=== PATIENT | female | born 1960 | race Caucasian/White ===

== ENCOUNTER 2019-12-05 11:46 | Inpatient (IN) | payer OTHER ==
[~2019-12-05] VITALS: Ht 170.2 cm; Wt 86.4 kg
[2019-12-05 12:26] LABS: BASOPHIL % 0.1 % (0-2)
[2019-12-05 12:55] LABS: ALKALINE PHOSPHATASE 130 U/L (46-116); ALT/SGPT 29 U/L (14-59); AST/SGOT 53 U/L (15-37); CARBON DIOXIDE 18.9 mmol/L (21-32); CHLORIDE SERUM 110 mmol/L (98-107); CREATININE SERUM 2.2 mg/dL (0.6-1.0); GFR1 24 mL/min; GLUCOSE SERUM 163 mg/dL (74-106); LIPASE 429 IU/L (73-393); POTASSIUM SERUM 3.8 mmol/L (3.5-5.1); SODIUM SERUM 140 mmol/L (136-145)
[2019-12-05 12:57] LABS: ALBUMIN 1.4 g/dL (3.4-5.0)
[2019-12-05 13:04] LABS: BILIRUBIN TOTAL 17.5 mg/dL (0.20-1.00)
[2019-12-05 13:18] LABS: CALCIUM 8.2 mg/dL (8.5-10.1)
[2019-12-05 13:21] LABS: RED CELL DISTRIBUTION WIDTH 20.1 % (11.5-14.5)
[2019-12-05 13:37] LABS: PLATELET COUNT 51 x10^3mcL (130-400); rbc morphology (normal/abnorm) ABNORMAL (NORMAL)
[2019-12-05 13:38] LABS: burr cell (echinocyte) 1+
[2019-12-05 14:48] VITALS: BP 113/44
[2019-12-05 14:58] VITALS: Ht 170.2 cm; Wt 86.4 kg
[2019-12-05 19:24] VITALS: BP 131/49
[2019-12-05 21:30] LABS: BASOPHIL % 0.5 % (0-2)
[2019-12-05 21:38] LABS: PLATELET COUNT 48 x10^3mcL (130-400); RED CELL DISTRIBUTION WIDTH 27.9 % (11.5-14.5)
[2019-12-05 21:45] LABS: schistocyte (helmet cell) 1+
[2019-12-05 21:48] LABS: rbc morphology (normal/abnorm) ABNORMAL (NORMAL)
[2019-12-05 23:42] VITALS: BP 108/45
[2019-12-06 03:15] LABS: BASOPHIL % 0.4 % (0-2)
[2019-12-06 03:16] LABS: RED CELL DISTRIBUTION WIDTH 27.4 % (11.5-14.5)
[2019-12-06 03:21] LABS: rbc morphology (normal/abnorm) ABNORMAL (NORMAL)
[2019-12-06 03:22] LABS: burr cell (echinocyte) 1+
[2019-12-06 03:25] LABS: PLATELET COUNT 43 x10^3mcL (130-400)
[2019-12-06 05:38] VITALS: BP 103/35
[2019-12-06 06:37] LABS: CALCIUM 8.1 mg/dL (8.5-10.1); POTASSIUM SERUM 3.9 mmol/L (3.5-5.1)
[2019-12-06 07:36] LABS: RED CELL DISTRIBUTION WIDTH 28.4 % (11.5-14.5)
[2019-12-06 07:40] VITALS: BP 120/46
[2019-12-06 09:42] LABS: rbc morphology (normal/abnorm) ABNORMAL (NORMAL)
[2019-12-06 11:59] VITALS: BP 115/44
[2019-12-06 13:00] LABS: ATYPICAL LYMPH 0 %; BAND NEUTROPHIL 0 % (0-10); BASOPHIL 0 % (0-2); MONOCYTE 2 % (0-7); SEGMENTED NEUTROPHILS 86 % (37-75)
[2019-12-06 13:01] LABS: METAMYELOCTE 0 % (0-2); acanthocyte (spur cell) 2+
[2019-12-06 13:02] LABS: PLATELET COUNT 48 x10^3mcL (130-400)
[2019-12-06 16:14] VITALS: BP 108/39
[2019-12-06 21:10] VITALS: BP 138/52
[2019-12-07 05:37] VITALS: BP 122/44
[2019-12-07 07:50] VITALS: BP 101/41
[2019-12-07 09:18] LABS: CARBON DIOXIDE 18.6 mmol/L (21-32); POTASSIUM SERUM 3.9 mmol/L (3.5-5.1)
[2019-12-07 09:23] LABS: BASOPHIL % 0.2 % (0-2)
[2019-12-07 09:28] LABS: RED CELL DISTRIBUTION WIDTH 28.9 % (11.5-14.5)
[2019-12-07 09:29] LABS: PLATELET COUNT 40 x10^3mcL (130-400)
[2019-12-07 12:16] VITALS: BP 108/39
[2019-12-07 16:03] VITALS: BP 109/45
[2019-12-07 20:34] VITALS: BP 126/50
[2019-12-08 05:30] VITALS: BP 117/51
[2019-12-08 07:20] VITALS: BP 153/56
[2019-12-08 07:36] LABS: CARBON DIOXIDE 19.9 mmol/L (21-32); CREATININE SERUM 1.8 mg/dL (0.6-1.0)
[2019-12-08 10:05] LABS: BASOPHIL % 0.2 % (0-2)
[2019-12-08 12:03] VITALS: BP 142/51
[2019-12-08 13:16] LABS: rbc morphology (normal/abnorm) ABNORMAL (NORMAL)
[2019-12-08 13:51] LABS: PLATELET COUNT 44 x10^3mcL (130-400)
[2019-12-08 16:28] VITALS: BP 101/31
[2019-12-08 20:05] VITALS: BP 122/46
[2019-12-09] VITALS (8 sets, daily range): BP systolic 100–122; BP diastolic 37–48
[2019-12-09 08:43] LABS: BASOPHIL % 0.1 % (0-2)
[2019-12-09 08:53] LABS: RED CELL DISTRIBUTION WIDTH 28.9 % (11.5-14.5)
[2019-12-09 09:10] LABS: CALCIUM 8.2 mg/dL (8.5-10.1); CARBON DIOXIDE 18.4 mmol/L (21-32); CREATININE SERUM 1.7 mg/dL (0.6-1.0); POTASSIUM SERUM 4.8 mmol/L (3.5-5.1)
[2019-12-09 10:08] LABS: PLATELET COUNT 41 x10^3mcL (130-400)
[2019-12-09 10:19] LABS: ovalocyte/elliptocyte 2+; rbc morphology (normal/abnorm) ABNORMAL (NORMAL); schistocyte (helmet cell) 1+
[2019-12-10] VITALS (9 sets, daily range): BP systolic 107–149; BP diastolic 35–60
[2019-12-10 07:35] LABS: BASOPHIL % 0.4 % (0-2)
[2019-12-10 08:48] LABS: rbc morphology (normal/abnorm) ABNORMAL (NORMAL)
[2019-12-10 08:58] LABS: PLATELET COUNT 35 x10^3mcL (130-400)
[2019-12-10 08:59] LABS: burr cell (echinocyte) 2+
[2019-12-10 09:06] LABS: CARBON DIOXIDE 20.2 mmol/L (21-32); CREATININE SERUM 1.7 mg/dL (0.6-1.0); POTASSIUM SERUM 4.6 mmol/L (3.5-5.1)
[2019-12-11 01:53] LABS: BASOPHIL % 0.3 % (0-2)
[2019-12-11 02:01] LABS: RED CELL DISTRIBUTION WIDTH 27.5 % (11.5-14.5)
[2019-12-11 02:37] LABS: PLATELET COUNT 38 x10^3mcL (130-400)
[2019-12-11 04:51] VITALS: BP 103/44
[2019-12-11 08:03] VITALS: BP 115/54
[2019-12-11] MEDS ORDERED: ULT50 PO (08:15)
[2019-12-11] MEDS ORDERED: LAC30L PO (08:15)
[2019-12-11] MEDS ORDERED: PRI20 PO (08:16)
[2019-12-11] MEDS ORDERED: MECLIZINE HYDRO25 M1 PO (08:16)
[2019-12-11] MEDS ORDERED: ZOF4 PO (08:16)
[2019-12-11 08:17] VITALS: BP 103/44
== END 2019-12-11 11:36 | disposition hospice, inpatient (51) | DRG 279 ==
LOC: ED 11:46 → DU 13:46 → MU 13:46 → DU 14:17
PROVIDERS: Emergency Medicine; Student in an Organized Health Care Education/Training Program; ADMIT Family Medicine
PROC: 02HV33Z Insertion of Infusion Device into Superior Vena Cava, Percutaneous Approach (ICD-10-PCS; principal; 2019-12-09)
PROC: B548ZZA Ultrasonography of Superior Vena Cava, Guidance (ICD-10-PCS; 2019-12-09)
PROC: 30233L1 Transfusion of Nonautologous Fresh Plasma into Peripheral Vein, Percutaneous Approach (ICD-10-PCS; 2019-12-09)
PROC: 30233N1 Transfusion of Nonautologous Red Blood Cells into Peripheral Vein, Percutaneous Approach (ICD-10-PCS; 2019-12-09)
DX: K72.00 Acute and subacute hepatic failure without coma (principal); N17.0 Acute kidney failure with tubular necrosis; K76.7 Hepatorenal syndrome; K92.0 Hematemesis; D69.59 Other secondary thrombocytopenia; D68.9 Coagulation defect, unspecified; D69.6 Thrombocytopenia, unspecified; I95.9 Hypotension, unspecified; E88.09 Other disorders of plasma-protein metabolism, not elsewhere classified; K74.69 Other cirrhosis of liver; D64.9 Anemia, unspecified; Z51.5 Encounter for palliative care; R18.8 Other ascites; N18.9 Chronic kidney disease, unspecified; Z68.29 Body mass index [BMI] 29.0-29.9, adult; Z90.710 Acquired absence of both cervix and uterus
CPT/HCPCS: 82962; C1751; C9113; G0378; J1200; J1610; J1956; J2250; J2310; J2405; J3010; J3490; J7030; J7040; J7042; J7050; J8597; P9016; P9059; Q0092; Q0162; Q0163